=== PATIENT | female | born 1995 | race Caucasian/White ===

== ENCOUNTER 2023-03-06 23:48 | Emergency (ER) | payer MEDICAID ==
[~2023-03-06] VITALS: Ht 154.9 cm; Wt 57.0 kg
[2023-03-07 01:44] VITALS: BP 124/58; O2SAT 98
[2023-03-07] MEDS ORDERED: ALBU6.7H15 INH (03:27)
[2023-03-07] MEDS ORDERED: BENZ100C86 MT (03:27)
[2023-03-07] MEDS ORDERED: GUAI600T26 MT (03:27)
[2023-03-07] MEDS ORDERED: GUAIFENESIN 600MG ER TABLET PO ONE (03:30)
[2023-03-07 03:37] VITALS: PULSE 65; RESP 19; TEMP 97.5
== END 2023-03-07 03:39 | disposition home or self-care (01) ==
LOC: ER 03-07 00:49
DX: R05.9 Cough, unspecified (principal); R60.0 Localized edema
CPT/HCPCS: 81025; 93970; 99284